=== PATIENT | male | born 1955 | race Caucasian/White ===

== ENCOUNTER 2018-04-25 17:16 | Inpatient (IN) | payer OTHER ==
[~2018-04-25] VITALS: Ht 190.5 cm; Wt 58.5 kg
--- NOTE | ~2018-04-25 | PATH ---
[facility] [place] [address] PATHOLOGY RPT PROCEDURE Name: JAMES BIANCHI Room #: 453-P [facility] IN .R.#: [id number] Admission: 04/25/18 Date of : 59 Discharge: 04/28/18 Report #: [id number] Path Case #: [id number] [facility] Accession Number: [id number] . 01 Material submitted: . RIGHT ILIAC WING MASS . 01 Clinical history: . Right iliac wing mass . 02 Diagnosis: Bone and soft tissue biopsy, "right iliac wing mass": - METASTATIC NON-SMALL CELL CARCINOMA. SEE COMMENT. . (SHA:patricia; 05/02/18) QL/05/02/2018 . 02 Comment: There are sheets of malignant-appearing cells with some cytoplasmic clearing with moderate pleomorphism. . This case was also reviewed by Dr. Lewis Anna. The case was also discussed with Silvia Lees at Dr. Adrián Brooke office on 05/02/2018 at 10am. . History of right renal mass and right liver mass noted. The histological features are suggestive of metastatic renal cell carcinoma. However immunoperoxidase stains will be done and an additional report will follow. . (SHA:mml; 05/02/18) . 02 Addendum: . The immunoperoxidase stains CK20 and CK7 are negative. Immunoperoxidase stains vimentin AE1/AE3 and CD10 are positive. Immunoperoxidase stain for GALLO is weakly focally positive. The mucin stain is negative. . Based on these stains the findings are consistent with a metastatic renal cell carcinoma. (SHA:pit 05/03/2018) . Professional services performed by [facility] at [facility], [address] [place], [place] [address], [place] [address]. Technical services performed by [email or web address] at [address] [place] [address], [facility] [address], [place] [address]. LB/05/03/2018 Addendum Electronically Signed by Cesario Rider [place] [address] PATHOLOGY RPT PROCEDURE Name: JAMES BIANCHI Room #: 453-P [facility] IN ..#: [id number] Admission: 04/25/18 Date of : 59 Discharge: 04/28/18 Report #: [id number] Path Case #: [id number] . 02 Electronically signed: . Cesario Rider MD, Pathologist NPI- [id number] . 01 Gross description: . The specimen is received in formalin, labeled "James Bianchi, right iliac wing mass", are three bernard-white needle cores measuring 2.5, 2.0 and 1.1 cm in length with an average 0.1 cm in diameter. The specimen is entirely submitted in A1-A3. (SWS; 05/01/2018) SHS/SHS . 02 Pathologist provided ICD-10: C79.51 . 02 CPT . 057106, Y03788, P45718, 941884 Specimen Comment: A courtesy copy of this report has been sent to Specimen Comment: [phone], , . Specimen Comment: Report sent to , DR JACQUES / DR MONCADA Specimen Comment: A duplicate report has been generated due to demographic updates. Performed at: [address] [facility], [place], [place] [id number] MD Ihsan Orta MD Phone: [phone] Performed at: [address] [facility] [address] [id number] MD Yu Weiss MD Phone: [phone]
--- NOTE | ~2018-04-25 | HC ---
[facility] [place] [address] [place] [address] CONSULTATION Name: MAINOR BIANCHI Room #: 453-P [facility] IN ..#: [id number] Admission: 04/25/18 Attend Phys: Dorothy Medel Discharge: 04/28/18 Date of : 59 Report #: [id number] THIS REPORT FOR: //name// CC: [facility] physician/PCP Gadiel Medel DATE OF SERVICE: 04/26/2018 CHIEF COMPLAINT: Bilateral foot wounds. HISTORY OF PRESENT ILLNESS: This is a 62-year-old white male who is currently hospitalized for a mass on his right kidney. The patient was sent out as a direct admit from [facility] for evaluation of this right renal mass. Upon admission, the patient was complaining of burning and itching in his bilateral feet with open superficial wounds. The patient states these have been present for several weeks. The patient states that he has never done anything besides qzqr-ynr-kzxiizd medicines to try to treat them. The patient denies any other wounds in the past that he could not heal on his own. The patient states that the wounds themselves were very sensitive to touch. The patient denies fevers or chills. PAST MEDICAL HISTORY: Coronary artery disease with previous myocardial infarctions x 3. The patient has had 4 coronary artery stents. The patient had CVA at the age of 32 and has chronic left-sided weakness with a footdrop and issues with his balance. He has a history of mitral valve prolapse, gastroesophageal reflux disease, hyperlipidemia, and MS, which is advancing. CURRENT MEDICATIONS: Multiple, I reviewed the patient's medication list. DRUG ALLERGIES: None. SOCIAL HISTORY: The patient has a history of smoking for several pack years, but quit approximately a year ago. Denies alcohol use. FAMILY HISTORY: Not pertinent to current medical condition. REVIEW OF SYSTEMS: CONSTITUTIONAL: The patient denies fevers or chills. NEUROLOGIC: The patient has overall generalized weakness and fatigue, but no isolated weakness in his arms or legs. EYES: No complaints. ENT: No complaints. CARDIAC: The patient denies chest pain, palpitations or peripheral edema. RESPIRATORY: The patient denies shortness breath, cough or wheezes. GASTROINTESTINAL: The patient denies nausea, vomiting or abdominal pain. [address] [address] CONSULTATION Name: MAINOR BIANCHI Nabeel Room #: 453-P [facility] IN ..#: [id number] Admission: 04/25/18 Attend Phys: Dorothy Medel Discharge: 04/28/18 Date of : 59 Report #: [id number] GENITOURINARY: The patient denies urgency or frequency. MUSCULOSKELETAL: The patient complains of pain in his right flank area. SKIN: The patient has what appears to be a fungal type rash with open excoriations on bilateral feet. PHYSICAL EXAMINATION: VITAL SIGNS: Temperature 36.7, pulse 86, respirations 17, BP 165/103. GENERAL: This is alert and oriented x 3, chronically ill-appearing white male who is in no obvious distress. HEENT: Normocephalic, atraumatic. Mucous membranes are somewhat dry. Pupils are round. Sclerae are white. NECK: Supple, without JVD. BACK: Tender to percussion along the right costovertebral angle. LUNGS: Slightly diminished breath sounds heard throughout, but no rhonchi or wheezes. CHEST: Nontender. HEART: Regular with 2/6 systolic ejection murmur. ABDOMEN: Soft, nontender. EXTREMITIES: The patient moves all extremities without difficulty. The patient has 1+ dorsalis pedis pulses bilaterally. On bilateral feet there are superficial wounds with excoriations mainly on the dorsal aspects with surrounding what appears to be a fungal rash. There is no actual increased warmth or signs consistent with cellulitis. The feet themselves are tender to touch and feel slightly cool. He does not appear to have a significant decreased vascular component. NEUROLOGIC: Cranial nerves 2-12 grossly intact except for the fact that the patient has a left-sided weakness. LABORATORY DATA: White count 11.1, hemoglobin 11.0. Albumin is low at 2.0. IMPRESSION: 1. Superficial ulcerations of bilateral feet with a fungal rash component, limited breakdown of skin. 2. Right renal mass. Workup undergoing. 3. Severe protein calorie malnutrition with albumin of 2.0. 4. Generalized debility. 5. History of multiple sclerosis. PLAN: At this time, I am going to cleanse the area of foot with normal saline wound cleanser, apply Lotrisone cream and cover with Xeroform and ABDs and wrap with Kerlix. We will check arterial Dopplers to make sure that the patient has adequate arterial flow to the feet for healing. We will encourage the patient [address] [address] CONSULTATION Name: MAINOR BIANCHI Room #: 453-P [facility] IN M.R.#: [id number] Admission: 04/25/18 Attend Phys: Dorothy Sanchez Chichinabila Discharge: 04/28/18 Date of : 59 Report #: [id number] to maximize his oral protein supplementation for healing. We will continue to follow the patient while he is here. By: 1258 Jero Rios MD /nt
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
[~2018-04-25 17:16] MED LIST: ASA5UEC PO; ASPIRIN EC81 M1 PO; ATENOLOL 50 MG50 M1; ATENOLOL 50MG T50 MG PO; EFFIENT10 MG PO; LIPITOR80 MG PO; LISINOPRIL5 MG PO; NITROSTAT0.4 MG SL; PRILOSEC 20 MG20 MG
[2018-04-25 20:00] VITALS: BP 127/84
[2018-04-26 00:33] LABS: MCH 28.3 pg (26.0-34.0); MCHC 33.4 g/dL (28.0-37.0); MCV 84.8 fL (80.0-100.0); RBC 3.89 mil/uL (4.50-6.00); RDW 15.6 % (10.5-14.5); WBC 11.1 thou/uL (4.0-11.0)
[2018-04-26 01:08] LABS: CALCIUM 8.7 mg/dL (8.5-10.1); CREATININE 0.8 mg/dL (0.7-1.3); POTASSIUM 4.5 mmol/L (3.5-5.1); TOTAL BILIRUBIN 0.4 mg/dL (<0.1-1.0); TOTAL PROTEIN 5.9 g/dL (6.4-8.2)
[2018-04-26 04:25] VITALS: BP 155/94
[2018-04-26 07:30] VITALS: BP 152/99
[2018-04-26 13:45] LABS: APTT 37.9 Seconds (24.5-32.8); PROTIME 10.5 Seconds (9.3-11.4)
[2018-04-26 14:23] VITALS: BP 138/89
[2018-04-26 19:22] VITALS: BP 151/106
[2018-04-27 03:32] VITALS: BP 179/108
[2018-04-27 07:54] VITALS: BP 167/109
[2018-04-27 12:48] VITALS: BP 162/102
[2018-04-27 20:50] VITALS: BP 149/92
[2018-04-28 03:54] VITALS: BP 157/106
[2018-04-28 07:20] VITALS: BP 165/103
[2018-04-28] MEDS ORDERED: SENOKOT-S1 TA2 PO (10:47)
[2018-04-28] MEDS ORDERED: NORCO 5-325 TA1 EACH PO (10:47)
[2018-04-28 11:26] VITALS: BP 165/103
== END 2018-04-28 14:50 | disposition home health service (06) | DRG 673 ==
LOC: 4W 17:16
PROVIDERS: Nurse Practitioner Family; Radiology Vascular & Interventional Radiology
PROC: 0QB23ZX Excision of Right Pelvic Bone, Percutaneous Approach, Diagnostic (ICD-10-PCS; principal; 2018-04-27)
DX: C79.01 Secondary malignant neoplasm of right kidney and renal pelvis (principal); E43 Unspecified severe protein-calorie malnutrition; L97.929 Non-pressure chronic ulcer of unspecified part of left lower leg with unspecified severity; I69.354 Hemiplegia and hemiparesis following cerebral infarction affecting left non-dominant side; Z68.1 Body mass index [BMI] 19.9 or less, adult; K21.9 Gastro-esophageal reflux disease without esophagitis; E78.5 Hyperlipidemia, unspecified; I25.5 Ischemic cardiomyopathy; N28.9 Disorder of kidney and ureter, unspecified; R91.1 Solitary pulmonary nodule; M89.9 Disorder of bone, unspecified; I25.10 Atherosclerotic heart disease of native coronary artery without angina pectoris; K56.41 Fecal impaction; I34.1 Nonrheumatic mitral (valve) prolapse; G35 Multiple sclerosis; I25.2 Old myocardial infarction; Z95.5 Presence of coronary angioplasty implant and graft; Z82.49 Family history of ischemic heart disease and other diseases of the circulatory system; Z79.899 Other long term (current) drug therapy
CPT/HCPCS: 10047